=== PATIENT | female | born 1955 | race Two or more races ===

== ENCOUNTER 2023-11-14 01:30 | Emergency (ER) | payer MEDICARE, OTHER ==
[~2023-11-14] VITALS: Ht 157.5 cm; Wt 65.8 kg
[2023-11-14 02:54] VITALS: BP 138/66; TEMP 98; O2SAT 99
== END 2023-11-14 02:55 | disposition home or self-care (01) ==
LOC: ER 01:30
DX: S70.02XA Contusion of left hip, initial encounter (principal); I10 Essential (primary) hypertension; E11.9 Type 2 diabetes mellitus without complications; E78.5 Hyperlipidemia, unspecified; Z60.2 Problems related to living alone; W01.0XXA Fall on same level from slipping, tripping and stumbling without subsequent striking against object, initial encounter; Y93.89 Activity, other specified; Y92.89 Other specified places as the place of occurrence of the external cause; Y99.8 Other external cause status
CPT/HCPCS: 73700-TC